=== PATIENT | female | born 1965 | race African-American/Black ===

== ENCOUNTER 2022-10-14 11:24 | Emergency (ER) | payer BC ==
[~2022-10-14] VITALS: Ht 154.9 cm; Wt 113.0 kg
[2022-10-14] MEDS ORDERED: CEPH500T MT (11:48)
[2022-10-14] MEDS ORDERED: CEPHALEXIN 250MG CAPSULE PO ONE (12:00)
[2022-10-14 12:38] VITALS: BP 149/74
== END 2022-10-14 14:41 ==
LOC: ER 14:00
DX: M79.662 Pain in left lower leg (principal); M79.89 Other specified soft tissue disorders; I10 Essential (primary) hypertension; Z90.89 Acquired absence of other organs
CPT/HCPCS: 99283